=== PATIENT | male | born 1965 | race Caucasian/White ===

== ENCOUNTER 2018-09-25 15:10 | Emergency (ER) | payer OTHER ==
[2018-09-25] MEDS ORDERED: Sodium Chloride 0.9% 10 ML Syringe FLUSH PRN (16:27)
--- NOTE | 2018-09-25 16:27 | EDM.PDOC ---
ED HPI GENERAL MEDICAL PROBLEM - General Chief Complaint: Abdominal Pain Stated Complaint: VOMITING/CRAMPING/2DAYS Time Seen by Provider: 09/25/18 16:20 Source of Information: Reports: Patient History Limitations: Reports: Other (Uncomfortable) - History of Present Illness INITIAL COMMENTS - FREE TEXT/NARRATIVE: Patient presents describing 2 days of abdominal pain, bloating, cramping, nausea , vomiting. He's had 2 episodes of this in the past, last fall, and all testing was normal according to him. Nothing helps current symptoms. He hasn't eaten anything for 2 days. He gets abdominal cramps but has also had cramps within the hands and feet at times. No medication has been taken nor has anything else helped him. He feels miserable. Today, he had 2 fast food meals on his way here from [facility]. He has medication for hypertension as well as cholesterol and is not taken any over the last 2 days. He is here to open up his summer cabin, he lives in [place], [place]. Onset: Gradual Onset Date: 09/23/18 Duration: Day(s): (2) Quality: Reports: Ache, Burning Severity: Moderate Improves with: Reports: None Worsens with: Reports: None Associated Symptoms: Reports: Nausea/Vomiting Middle Abdomen Pain Score (Numeric/FACES): 9 - Related Data Allergies Allergy/AdvReac Type Severity Reaction Status Date / Time No Known Allergies Allergy Verified 09/25/18 15:45 Home Meds: Home Meds Aspirin [Halfprin] 81 mg PO DAILY 09/25/18 [History] Past Medical History Cardiovascular History: Reports: High Cholesterol, Hypertension, VA, Stents Respiratory History: Reports: COPD Musculoskeletal History: Reports: Back Pain, Chronic Psychiatric History: Reports: Anxiety - Past Surgical History Cardiovascular Surgical History: Reports: Coronary Artery Stent GI Surgical History: Reports: Colonoscopy Other GI Surgeries/Procedures: stomach scopes over past year 2017 Social & Family History - Tobacco Use Smoking Status *Q: Current Every Day Smoker Years of Tobacco use: 35 Packs/Tins Daily: 1 - Caffeine Use Caffeine Use: Reports: Coffee Caffeine Use Comment: daily use, one cup a day. - Alcohol Use Days Per Week of Alcohol Use: 5 Number of Drinks Per Day: 3 Total Drinks Per Week: 15 - Recreational Drug Use Recreational Drug Use: No ED ROS GENERAL - Review of Systems Review Of Systems: See Below Constitutional: Reports: Malaise, Weakness, Decreased Appetite. Denies: Fever, Chills, Weight Loss Respiratory: Reports: No Symptoms Cardiovascular: Reports: No Symptoms Endocrine: Reports: No Symptoms GI/Abdominal: Reports: Abdominal Pain, Anorexia, Decreased Appetite, Nausea, Vomiting. Denies: Black Stool, Bloody Stool, Constipation, Diarrhea : Reports: No Symptoms Musculoskeletal: Reports: Back Pain (Chronic) Skin: Reports: No Symptoms Neurological: Reports: Tingling, Other (Hand and foot cramps) Hematologic/Lymphatic: Reports: No Symptoms Immunologic: Reports: No Symptoms ED EXAM, GI/ABD - Physical Exam Exam: See Below Exam Limited By: Other (Restlessness) General Appearance: Anxious, Moderate Distress Throat/Mouth: Normal Inspection Neck: Normal Inspection Respiratory/Chest: No Respiratory Distress Cardiovascular: Regular Rate, Rhythm GI/Abdominal Exam: Tender (Diffuse), Abnormal Bowel Sounds (Decreased). No: No Distention, Rigid, Rebound Extremities: Normal Inspection Psychiatric: Anxious Skin Exam: Warm, Dry Lymphatic: No Adenopathy Course - Vital Signs Last Recorded V/S: Last Vital Signs Temp 35.6 C 09/25/18 20:31 Pulse 97 09/25/18 19:35 Resp 15 09/25/18 20:31 BP 127/83 09/25/18 20:31 Pulse Ox 99 09/25/18 20:31 - Orders/Labs/Meds Orders: Active Orders 24 hr Category Date Time Status UA W/MICROSCOPIC [URIN] Stat Lab 09/25/18 16:27 Ordered Sodium Chloride 0.9% [Normal Saline] 1,000 ml Med 09/25/18 16:30 Active IV ASDIRECTED Sodium Chloride 0.9% [Normal Saline] 1,000 ml Med 09/25/18 19:30 Active IV ASDIRECTED Sodium Chloride 0.9% [Saline Flush] Med 09/25/18 16:27 Active 10 ml FLUSH ASDIRECTED PRN Saline Lock Insert [OM.PC] Routine Oth 09/25/18 16:27 Ordered Medication Orders Sodium Chloride (Normal Saline) 1,000 mls @ 500 mls/hr IV ASDIRECTED YINKA Last Infusion: 09/25/18 18:21 Dose: 999 mls/hr Infusion: 09/25/18 17:57 Dose: 999 mls/hr Admin: 09/25/18 16:44 Dose: 500 mls/hr Sodium Chloride (Normal Saline) 1,000 mls @ 999 mls/hr IV ASDIRECTED YINKA Last Admin: 09/25/18 19:00 Dose: 999 mls/hr Sodium Chloride (Saline Flush) 10 ml FLUSH ASDIRECTED PRN PRN Reason: Keep Vein Open Last Admin: 09/25/18 16:46 Dose: 10 ml Labs: Laboratory Tests 09/25/18 09/25/18 09/25/18 Range/Units 16:35 16:35 16:35 WBC 15.9 H (4.5-11.0) K/uL RBC 6.25 H (4.30-5.90) M/uL Hgb 19.9 H* (12.0-15.0) g/dL Hct 57.1 H (40.0-54.0) % MCV 91 (80-98) fL MCH 32 H (27-31) pg MCHC 35 (32-36) % Plt Count 377 (150-400) K/uL Neut % (Auto) 79 H (36-66) % Lymph % (Auto) 9 L (24-44) % Emanuel % (Auto) 11 H (2-6) % Eos % (Auto) 0 L (2-4) % Baso % (Auto) 1 (0-1) % Sodium 135 L (140-148) mmol/L Potassium 3.4 L (3.6-5.2) mmol/L Chloride 91 L (100-108) mmol/L Carbon Dioxide 27 (21-32) mmol/L Anion Gap 20.4 H (5.0-14.0) mmol/L BUN 23 H (7-18) mg/dL Creatinine 2.7 H (0.8-1.3) mg/dL Est Cr Clr Drug Dosing 33.31 mL/min Estimated GFR (MDRD) 25 L (>60) Glucose 184 H (74-106) mg/dL Calcium 11.5 H (8.5-10.1) mg/dL Total Bilirubin 1.0 (0.2-1.0) mg/dL AST 32 (15-37) U/L ALT 49 (12-78) U/L Alkaline Phosphatase 94 (46-116) U/L C-Reactive Protein 2.65 H (0.0-0.3) mg/dL Total Protein 9.7 H (6.4-8.2) g/dL Albumin 4.9 (3.4-5.0) g/dL Globulin 4.8 H (2.3-3.5) g/dL Albumin/Globulin Ratio 1.0 L (1.2-2.2) Lipase 361 (73-393) U/L Meds: Medications Generic Name Dose Route Start Last Admin Trade Name Freq PRN Reason Stop Dose Admin Sodium Chloride 1,000 mls @ 500 mls/hr 09/25/18 16:30 09/25/18 18:21 Normal Saline IV Infused ASDIRECTED YINKA Infusion Sodium Chloride 1,000 mls @ 999 mls/hr 09/25/18 19:30 09/25/18 19:00 Normal Saline IV 999 mls/hr ASDIRECTED YINKA Administration Sodium Chloride 10 ml 09/25/18 16:27 09/25/18 16:46 Saline Flush FLUSH 10 ml ASDIRECTED PRN Administration Keep Vein Open Discontinued Medications Generic Name Dose Route Start Last Admin Trade Name Shyamq PRN Reason Stop Dose Admin Fentanyl 100 mcg 09/25/18 16:52 09/25/18 16:58 Sublimaze IVPUSH 09/25/18 16:53 100 mcg ONETIME ONE Administration Ondansetron HCl 4 mg 09/25/18 16:30 09/25/18 16:42 Zofran IVPUSH 09/25/18 16:31 4 mg ONETIME ONE Administration - Re-Assessments/Exams Free Text/Narrative Re-Assessment/Exam: 09/25/18 20:42 Patient is given normal saline 1 L over 2 hours. His mom and able to give us a urine sample yet. He also received fentanyl 100 g for severe pain and ondansetron 4 mg IV for nausea. His blood pressure varied from the low 100s systolic to be admitted 80s. That waxed and waned with and without IV fluids. Return later once lab and initial imaging testing was complete to review findings. His upright abdomen x-ray showed one air-fluid level and a paucity of air throughout the entire abdomen. His hemoglobin is just under 20. His WBCs are 15,500. Creatinine is 2.7 although BUN is in the normal range. His anion gap is almost 21. Potassium is 3.5 and chloride is in the 90s however. His calcium is elevated at 11.5. He denies any unusual ingestions such as heavy amounts of NSAIDs or similar products. 09/25/18 21:00 When I returned to review lab findings, the patient contacted his primary care physician, Dr. Ohara, back home and he and I spoke to review the findings. His CT scan looked abnormal to me as were a number of the labs. He will need close recheck and follow-up soon. He'll be sent with the disc of his imaging findings along with a copy of this note. He should not take any NSAIDs or drink alcohol. No irritating substances. Liquid diet only for the next couple of days. The potential of this irritated intestine to perforated and is a very real possibility. If he feels worse in any way prior to returning home he should go to the nearest emergency department. Departure - Departure Time of Disposition: 20:54 Disposition: Home, Self-Care 01 Clinical Impression: Duodenitis, Acute kidney injury (nontraumatic), Hyperglycemia, unspecified, Hypercalcemia, Nausea and vomiting, Erythrocytosis - Discharge Information *PRESCRIPTION DRUG MONITORING PROGRAM REVIEWED*: Not Applicable *COPY OF PRESCRIPTION DRUG MONITORING REPORT IN PATIENT AVIS: Not Applicable Referrals: PCP,None [Primary Care Provider] - Forms: ED Department Discharge Additional Instructions: Do not take any anti-inflammatory medications. Do not drink any alcohol or other irritating substances. I do not recommend taking blood pressure medication at this time as 0 pressures have been low periodically during her stay in this department. Recommend simple diet with liquids only over the next 48 hours. We will send you with a disc of your CT images along with the note of this visit today. You have a mixture of abnormal findings on testing today that are not completely explained. Return to emergency Department if feeling worse in anyway. - My Orders Last 24 Hours: My Active Orders 09/25/18 16:27 UA W/MICROSCOPIC [URIN] Stat Sodium Chloride 0.9% [Saline Flush] 10 ml FLUSH ASDIRECTED PRN Saline Lock Insert [OM.PC] Routine 09/25/18 16:30 Sodium Chloride 0.9% [Normal Saline] 1,000 ml IV ASDIRECTED 09/25/18 19:30 Sodium Chloride 0.9% [Normal Saline] 1,000 ml IV ASDIRECTED - Assessment/Plan Last 24 Hours: My Active Orders 09/25/18 16:27 UA W/MICROSCOPIC [URIN] Stat Sodium Chloride 0.9% [Saline Flush] 10 ml FLUSH ASDIRECTED PRN Saline Lock Insert [OM.PC] Routine 09/25/18 16:30 Sodium Chloride 0.9% [Normal Saline] 1,000 ml IV ASDIRECTED 09/25/18 19:30 Sodium Chloride 0.9% [Normal Saline] 1,000 ml IV ASDIRECTED
[2018-09-25] MEDS ORDERED: Ondansetron 4 MG/2 ML SDV IVPUSH ONE (16:30)
[2018-09-25] MEDS ORDERED: Sodium Chloride 0.9% 1,000 ML IV SCH ×2 (16:30→19:30)
[2018-09-25] MEDS ORDERED: fentaNYL 100 MCG/2 ML SDV IVPUSH ONE (16:52)
--- NOTE | 2018-09-25 17:47 | CRLCR ---
INDICATION: Generalized abdominal cramping and bloating for the past 2 days. COMPARISON: None available. FINDINGS: A single AP erect view of the abdomen was obtained. There is very little bowel gas, with no sign of any distention. A small amount of gas is seen in the gastric fundus in the proximal small bowel. Nothing is seen which would suggest obstruction or ileus. There is no sign of free air. Soft tissue planes are preserved and there is no sign of a mass. No calcifications of concern are identified. The osseous structures are normal in appearance for the patient`s age. There is mild platelike density in the left lower lung, probably atelectasis. There is a 2.8 centimeter mass in the left mid-upper lung in the superior perihilar region. It is possible that this is a density in the anterior rib. Recommend departmental PA and lateral views of the chest along with shallow bilateral oblique views. A calcified granuloma is seen nearby in the lateral left upper lung, measuring 12 millimeters in diameter. Healing fractures of the posterior-lateral left 6th and 7th ribs are seen. IMPRESSION: No sign of obstruction or ileus. Little bowel gas. Possible 2.8 centimeter mass in the left superior perihilar lung. Recommend departmental PA and lateral views along with bilateral shallow oblique views. Mild linear density in the left lower lung, probably atelectasis. Dictated by Gerardo Crowley MD @ Sep 25 2018 5:40PM Signed by Dr. Gerardo Crowley @ Sep 25 2018 5:44PM
--- NOTE | 2018-09-25 20:40 | CRLCT ---
Clinical INDICATION: Severe abdominal pain and cramping for 2 days. TECHNIQUE: Axial noncontrast CT cuts were performed from above diaphragm to the ischial tuberosities. COMPARISON: Plain radiographs 09/25/2018. FINDINGS: There is mucosal thickening of the descending duodenum with periduodenal edema act consistent with duodenitis. There is no free intraperitoneal air or fluid. The liver, spleen, pancreas, adrenals and kidneys appear normal. There are no enlarged retroperitoneal, mesenteric, iliac or inguinal lymph nodes. The urinary bladder, seminal vesicles and prostate gland appear normal. IMPRESSION: There is mucosal thickening and periduodenal edema of the descending duodenum consistent with a duodenitis. Consider endoscopy. There is no free intraperitoneal air. Please note that all CT scans at this facility use dose modulation, iterative reconstruction, and/or weight-based dosing when appropriate to reduce radiation dose to as low as reasonably achievable. Dictated by Yves Olivas MD @ Sep 25 2018 8:33PM Signed by Dr. Yves Olivas @ Sep 25 2018 8:38PM
== END 2018-09-25 21:18 | disposition home or self-care (01) ==
LOC: JP.ED 15:10
DX: N17.9 Acute kidney failure, unspecified (principal); K29.80 Duodenitis without bleeding; R73.9 Hyperglycemia, unspecified; E83.52 Hypercalcemia; D75.1 Secondary polycythemia; F17.210 Nicotine dependence, cigarettes, uncomplicated; F41.9 Anxiety disorder, unspecified; I10 Essential (primary) hypertension; I25.2 Old myocardial infarction; Z79.82 Long term (current) use of aspirin
CPT/HCPCS: 36415; 74018; 74176; 80053; 83690; 85025; 86140; 96361; 96374; 96375; 99284; J2405; J3010; J7030